=== PATIENT | male | born 1995 | race Caucasian/White ===

== ENCOUNTER 2020-04-29 18:31 | Emergency (ER) | payer SELFPAY ==
[~2020-04-29] VITALS: Ht 182 cm; Wt 77.0 kg
[2020-04-29 18:35] VITALS: BP 145/111
[2020-04-29] MEDS ORDERED: ALPRAZolam 0.25 MG (XANAX) TAB PO ONE (18:45)
[2020-04-29 18:51] LABS: BASOPHILS # (AUTO) 0.1 10^3/uL (0.0-0.1); BASOPHILS % (AUTO) 1 % (0-10); EOSINOPHILS # (AUTO) 0.1 10^3/uL (0.0-0.3); EOSINOPHILS % (AUTO) 1 % (0-10); HEMATOCRIT 45 % (40-54); HEMOGLOBIN 15.1 g/dL (13.3-17.7); LYMPHOCYTES # (AUTO) 2.3 10^3/uL (1.0-4.0); LYMPHOCYTES % (AUTO) 36 % (12-44); MEAN CORPUSCULAR HEMOGLOBIN 30 pg (25-34); MEAN CORPUSCULAR HGB CONC 33 g/dL (32-36); MEAN CORPUSCULAR VOLUME 89 fL (80-99); MEAN PLATELET VOLUME 10.1 fL (9.0-12.2); MONOCYTES # (AUTO) 0.5 10^3/uL (0.0-1.0); MONOCYTES % (AUTO) 7 % (0-12); NEUTROPHILS # (AUTO) 3.6 10^3/uL (1.8-7.8); NEUTROPHILS % (AUTO) 55 % (42-75); PLATELET COUNT 348 10^3/uL (130-400); WHITE BLOOD COUNT 6.5 10^3/uL (4.3-11.0)
--- NOTE | 2020-04-29 18:53 | ED Psychosocial ---
General Chief Complaint: Psych/Social Disorder Stated Complaint: ANXIETY Source: patient Exam Limitations: no limitations History of Present Illness Date Seen by Provider: Apr 29, 2020 Time Seen by Provider: 18:48 Initial Comments To ER with reports of anxiety. He states he smoked marijuana about 2 hours ago and has been feeling incredibly anxious since then. He does not want to take anything for it. I offered him Xanax here but he states he does not want to take it because he has several friends who are addicted. Last time he had a reaction like this it took about 4 hours after smoking to get calm down back to normal. He also thinks he should get some x-rays of his teeth while he is here because he believes he has several cavities and has not been to a dentist in quite some time. He smokes marijuana a couple of times a day, drinks alcohol about 1 time a week. Does not want to take any medications to manage this. Timing/Duration: constant Severity: moderate Associated Symptoms: anxiety Allergies and Home Medications Allergies Coded Allergies: No Known Drug Allergies (Unverified , 04/29/20) Patient Home Medication List Home Medication List Reviewed: Yes Review of Systems Constitutional: see HPI EENTM: see HPI Respiratory: no symptoms reported Cardiovascular: no symptoms reported Genitourinary: no symptoms reported Musculoskeletal: no symptoms reported Skin: no symptoms reported Psychiatric/Neurological: See HPI, Anxiety Past Sajaffz-Iooqkd-Edxgfa Hx Patient Social History Recent Foreign Travel: No Contact w/Someone Who Travel: No Physical Exam Vital Signs - First Documented 04/29/20 18:35 Temp 36.4 Pulse 112 Resp 18 B/P (MAP) 145/111 (122) Pulse Ox 99 Capillary Refill : Height, Weight, BMI Height: '" Weight: lbs. oz. kg; BMI Method: General Appearance: WD/WN, no apparent distress, other (very anxious appearing. ) HEENT: PERRL/EOMI, normal ENT inspection Respiratory: no respiratory distress, no accessory muscle use Cardiovascular: no murmur, tachycardia Gastrointestinal: normal bowel sounds, non tender Neurologic/Psychiatric: alert, normal mood/affect, oriented x 3 Appearance/Memory: appropriate appearance, appropriate insight, neat Behavior/Eye Contact: cooperative, good eye contact Thoughts/Hallucinations: normal thought pattern, no apparent hallucination Skin: normal color, warm/dry Progress/Results/Core Measures Results/Orders Lab Results Laboratory Tests Test 04/29/20 18:45 Range/Units White Blood Count 6.5 4.3-11.0 10^3/uL Red Blood Count 5.10 4.30-5.52 10^6/uL Hemoglobin 15.1 13.3-17.7 g/dL Hematocrit 45 40-54 % Mean Corpuscular Volume 89 80-99 fL Mean Corpuscular Hemoglobin 30 25-34 pg Mean Corpuscular Hemoglobin Concent 33 32-36 g/dL Red Cell Distribution Width 12.8 10.0-14.5 % Platelet Count 348 130-400 10^3/uL Mean Platelet Volume 10.1 9.0-12.2 fL Immature Granulocyte % (Auto) 0 % Neutrophils (%) (Auto) 55 42-75 % Lymphocytes (%) (Auto) 36 12-44 % Monocytes (%) (Auto) 7 0-12 % Eosinophils (%) (Auto) 1 0-10 % Basophils (%) (Auto) 1 0-10 % Neutrophils # (Auto) 3.6 1.8-7.8 10^3/uL Lymphocytes # (Auto) 2.3 1.0-4.0 10^3/uL Monocytes # (Auto) 0.5 0.0-1.0 10^3/uL Eosinophils # (Auto) 0.1 0.0-0.3 10^3/uL Basophils # (Auto) 0.1 0.0-0.1 10^3/uL Immature Granulocyte # (Auto) 0.0 0.0-0.1 10^3/uL Sodium Level 138 135-145 MMOL/L Potassium Level 4.5 3.6-5.0 MMOL/L Chloride Level 104 98-107 MMOL/L Carbon Dioxide Level 23 21-32 MMOL/L Anion Gap 11 5-14 MMOL/L Blood Urea Nitrogen 9 7-18 MG/DL Creatinine 0.98 0.60-1.30 MG/DL Estimat Glomerular Filtration Rate > 60 BUN/Creatinine Ratio 9 Glucose Level 168 H 70-105 MG/DL Calcium Level 8.8 8.5-10.1 MG/DL Corrected Calcium 8.5 8.5-10.1 MG/DL Total Bilirubin 0.6 0.1-1.0 MG/DL Aspartate Amino Transf (AST/SGOT) 19 5-34 U/L Alanine Aminotransferase (ALT/SGPT) 17 0-55 U/L Alkaline Phosphatase 82 40-136 U/L Total Protein 6.9 6.4-8.2 GM/DL Albumin 4.4 3.2-4.5 GM/DL My Orders Orders - MARIAH AGEE APRN Alprazolam Tablet (Xanax Tablet) (04/29/20 18:45) Cbc With Automated Diff (04/29/20 18:39) Comprehensive Metabolic Panel (04/29/20 18:39) Ekg Tracing (04/29/20 18:39) Vital Signs/I&O 04/29/20 18:35 Temp 36.4 Pulse 112 Resp 18 B/P (MAP) 145/111 (122) Pulse Ox 99 Departure Communication (Admissions) 1851-I would suspect that he has had an adverse reaction to the joint he just smoked. He was offered Xanax to help control the anxiety and declined. He was offered hydroxyzine as a nonaddictive option and he declined. He was offered a prescription for medication to control his anxiety on a daily basis and he declines. Not entirely clear to me how I can help. Just prior to discharge pt reported feeling better. Apologized for coming in and "wasting your time". States he found some weed on his floor that had been there for quite a while and he probably shouldnt have smoked it. Believes he just had a bad experience with it. Impression Primary Impression: Anxiety Disposition: 01 HOME, SELF-CARE Condition: Stable Departure-Patient Inst. Decision time for Depature: 18:52 Referrals: NO,LOCAL PHYSICIAN (PCP/Family) Primary Care Physician Patient Instructions: Panic Disorder (DC) Add. Discharge Instructions: 1. Call [facility] at [phone] at anytime day or night. They would not be able to see you until Friday at the soonest. Return to Er for any concerns All discharge instructions reviewed with patient and/or family. Voiced understanding. MARIAH AGEE APRN Apr 29, 2020 18:52
[2020-04-29 19:02] LABS: ALBUMIN 4.4 GM/DL (3.2-4.5); CHLORIDE 104 MMOL/L (98-107); POTASSIUM 4.5 MMOL/L (3.6-5.0); SODIUM 138 MMOL/L (135-145)
[2020-04-29 19:03] LABS: CALCIUM 8.8 MG/DL (8.5-10.1)
[2020-04-29 19:04] LABS: GLUCOSE 168 MG/DL (70-105)
[2020-04-29 19:05] LABS: TOTAL PROTEIN 6.9 GM/DL (6.4-8.2)
[2020-04-29 19:06] LABS: BILIRUBIN,TOTAL 0.6 MG/DL (0.1-1.0); CARBON DIOXIDE 23 MMOL/L (21-32)
[2020-04-29 19:08] LABS: ALKALINE PHOSPHATASE 82 U/L (40-136); CREATININE SERUM 0.98 MG/DL (0.60-1.30); GFR ESTIMATED > 60
[2020-04-29 19:09] LABS: BUN/CREATININE RATIO 9
[2020-04-29 19:11] LABS: ALANINE AMINOTRANSFERASE 17 U/L (0-55)
== END 2020-04-29 19:21 | disposition home or self-care (01) ==
LOC: ER 18:32
DX: F41.9 Anxiety disorder, unspecified (principal)
CPT/HCPCS: 36415; 80053; 85025; 99283